=== PATIENT | female | born 1980 | race Caucasian/White ===

== ENCOUNTER 2017-07-01 05:01 | Emergency (ER) | payer BC ==
[2017-07-01] MEDS ORDERED: Sodium Chloride 0.9% 10 ML Syringe FLUSH PRN (05:14)
[2017-07-01] MEDS ORDERED: Pantoprazole 40 MG Vial IVPUSH ONE (05:14)
[2017-07-01] MEDS ORDERED: Sodium Chloride 0.9% 2.5 ML Syringe FLUSH PRN (05:14)
[2017-07-01] MEDS ORDERED: Sodium Chloride 0.9% 1,000 ML IV ONE (05:14)
[2017-07-01] MEDS ORDERED: Ondansetron 4 MG/2 ML SDV IVPUSH ONE (05:14)
[2017-07-01] MEDS ORDERED: Alum Hydrox/Mag Hydrox/Simeth 15 ML, Metoclopramide 5 MG, Lidocaine 2% 5 ML PO ONE ×3 (05:15)
[2017-07-01] MEDS ORDERED: Ketorolac 30 MG/ML SDV IVPUSH ONE (05:15)
--- NOTE | 2017-07-01 05:20 | EDM.PDOC ---
ED HPI GENERAL MEDICAL PROBLEM - General Chief Complaint: Abdominal Pain Stated Complaint: CHEST PAIN Time Seen by Provider: 07/01/17 05:04 - History of Present Illness INITIAL COMMENTS - FREE TEXT/NARRATIVE: HISTORY AND PHYSICAL: History of present illness: The patient is a 36-year-old female with a history of ankylosing spondylosis and chronic pain who does use Humira and chronic narcotic pain medication and presents with sudden onset of epigastric and lower sternal chest discomfort that started waking her from sleep about 45 minutes ago. 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 She said that all week she has been feeling "off" with some nausea on and off some fevers and not feeling quite herself. Today she had a normal day and she ate fine without nausea or vomiting no diarrhea and no urinary complaints no upper respiratory symptoms cough shortness of breath. Patient says she ate a normal dinner and did have a few sips of her husbands alcoholic beverage this evening which she doesn't normally do. The patient that she went to bed normally and suddenly woke up this morning with acute onset of epigastric discomfort which radiated up into her chest. She says that when she' s not feeling well she does eat poorly including eating junk foods and this week when she was feeling not quite herself she did do that. She has no history of food intolerance no gallbladder peptic ulcer disease or GI issue S Her only abdominal surgical history is of a She has no family history of cardiac disease and quit smoking several years ago. She denies drug use and as her has had a vasectomy. She did not take anything specifically for this new discomfort prior to coming here but did take some of her pain medication thinking that it might help. She is visibly did not take Mylanta Tums Pepto-Bismol or anything GI related. She currently feels the discomfort is deep and it is in her epigastric area and lower chest and she does have nausea. Review of systems: As per history of present illness and below otherwise all systems reviewed and negative. Past medical history: As per history of present illness and as reviewed below otherwise noncontributory. Surgical history: As per history of present illness and as reviewed below otherwise noncontributory. Social history: No reported history of drug or alcohol abuse. Family history: As per history of present illness and as reviewed below otherwise noncontributory. Physical exam: Gen.: Well-developed well-nourished female who is nontoxic and speaking clearly and easily in the ED. Vital signs of been reviewed by me. HEENT: Atraumatic, normocephalic, pupils reactive, negative for conjunctival pallor or scleral icterus, mucous membranes moist, throat clear, neck supple, nontender, trachea midline. Lungs: Clear to auscultation, breath sounds equal bilaterally, chest nontender. Heart: S1S2, regular, negative for clicks, rubs, or JVD. Abdomen: Soft, nondistended, nontender. Bowel sounds are normoactive and on palpation I cannot reproduce the pain and there is no rebound or guarding. There is some tympany in the upper abdomen without tenderness on percussion. Negative for masses or hepatosplenomegaly. Negative for costovertebral tenderness. Pelvis: Stable nontender. Genitourinary: Deferred. Rectal: Deferred. Extremities: Atraumatic, negative for cords or calf pain. Neurovascular unremarkable. No pedal edema or leg asymmetry Neuro: Awake, alert, oriented. Cranial nerves II through XII unremarkable. Cerebellum unremarkable. Motor and sensory unremarkable throughout. Exam nonfocal. Diagnostics: EKG CBC CMP amylase lipase troponin d-dimer H pylori CT scan of the abdomen and pelvis 1 view chest x-ray Therapeutics: IV O2 monitor IV fluids Zofran Toradol Protonix GI cocktail Patient states that the burning sensation in her upper abdomen is improving and she expresses to me that she is personally worried about a "intestinal blockage ". She now tells me that she has a history of constipation and takes laxatives on a weekly basis and in fact took some earlier tonight. She has no other surgical history other than the and has never had an endoscopy. I discussed with her that we would do the CT scan of the abdomen and pelvis and that we may or may not find answers from the CT scan. I did discuss with her that if the CT scan is negative then she would need to pursue further care and evaluation such as an endoscopy and the tops other testing on the gallbladder. She states understanding. She tells me now that there is no lower chest discomfort or tenderness and that is purely in the upper abdomen. SHe describes it as a burning sensation. I offered her pain medication specifically designed for pain management and she defers at this time. All testing results have been discussed wiht the pt including incidental kidney cyst and sacroilitis; she has a provider at [facility] that she can follow- up with and I will discharge her home with Carafate and Zofran. The sacroiliitis does not surprise her as she has had issues with that in the past. She has pain medication she can take and I've advised her on reasons to return to the ED. Impression: Epigastric abdominal pain, stable etiology unclear Definitive disposition and diagnosis as appropriate pending reevaluation and review of above. epigastric Pain Score (Numeric/FACES): 9 - Related Data Allergies Allergy/AdvReac Type Severity Reaction Status Date / Time No Known Allergies Allergy Verified 07/01/17 05:06 Home Meds: Home Meds oxyCODONE HCl/Acetaminophen [Percocet 5-325 mg Tablet] 1 tab PO TID 07/26/15 [ History] Adalimumab [Humira] 14 mg SQ ASDIRECTED 07/01/17 [History] Orphenadrine [Norflex] 100 mg PO BID 07/01/17 [History] Varenicline Tartrate [Chantix] 1 mg PO BID 07/01/17 [History] Social & Family History - Tobacco Use Smoking Status *Q: Former Smoker Used Tobacco, but Quit: Yes Month Tobacco Last Used: 2 - Caffeine Use Caffeine Use: Reports: Coffee Caffeine Use Comment: 2 cups daily - Recreational Drug Use Recreational Drug Use: No ED ROS GENERAL - Review of Systems Review Of Systems: ROS reveals no pertinent complaints other than HPI. ED EXAM, GENERAL - Physical Exam Exam: See Below (See dictation) Course - Vital Signs Last Recorded V/S: Last Vital Signs Temp 36.3 C 07/01/17 06:45 Pulse 88 07/01/17 06:45 Resp 18 07/01/17 06:45 BP 127/86 07/01/17 06:45 Pulse Ox 98 07/01/17 06:45 - Orders/Labs/Meds Orders: Active Orders 24 hr Category Date Time Status Cardiac Monitoring [RC] . DIRECTED Care 07/01/17 05:13 Active EKG Documentation Completion [RC] STAT Care 07/01/17 05:13 Active Oxygen Therapy, ED [RC] ASDIRECTED Care 07/01/17 05:13 Active Pulse Oximetry [RC] ASDIRECTED Care 07/01/17 05:13 Active Abdomen Pelvis w Cont [CT] Stat Exams 07/01/17 06:05 Taken Chest 1V Frontal [CR] Stat Exams 07/01/17 05:30 Taken Sodium Chloride 0.9% [Saline Flush] Med 07/01/17 05:14 Active 10 ml FLUSH ASDIRECTED PRN Sodium Chloride 0.9% [Saline Flush] Med 07/01/17 05:14 Active 2.5 ml FLUSH ASDIRECTED PRN Saline Lock Insert [OM.PC] Stat Oth 07/01/17 05:13 Ordered Medication Orders Sodium Chloride (Saline Flush) 10 ml FLUSH ASDIRECTED PRN PRN Reason: Keep Vein Open Last Admin: 07/01/17 05:31 Dose: 10 ml Sodium Chloride (Saline Flush) 2.5 ml FLUSH ASDIRECTED PRN PRN Reason: Keep Vein Open Last Admin: 07/01/17 05:31 Dose: 2.5 ml Labs: Laboratory Tests 07/01/17 07/01/17 07/01/17 Range/Units 05:10 05:10 05:10 WBC 7.51 (4.0-11.0) K/uL RBC 4.27 L (4.30-5.90) M/uL Hgb 13.7 (12.0-16.0) g/dL Hct 39.7 (36.0-46.0) % MCV 93.0 (80.0-98.0) fL MCH 32.1 H (27.0-32.0) pg MCHC 34.5 (31.0-37.0) g/dL RDW Std Deviation 42.1 (28.0-62.0) fl RDW Coeff of Rahul 13 (11.0-15.0) % Plt Count 272 (150-400) K/uL MPV 10.10 (7.40-12.00) fL Neut % (Auto) 34.6 L (48.0-80.0) % Lymph % (Auto) 49.5 H (16.0-40.0) % Andrew % (Auto) 13.3 (0.0-15.0) % Eos % (Auto) 1.9 (0.0-7.0) % Baso % (Auto) 0.7 (0.0-1.5) % Neut # (Auto) 2.6 (1.4-5.7) K/uL Lymph # (Auto) 3.7 H (0.6-2.4) K/uL Andrew # (Auto) 1.0 H (0.0-0.8) K/uL Eos # (Auto) 0.1 (0.0-0.7) K/uL Baso # (Auto) 0.1 (0.0-0.1) K/uL Nucleated RBC % 0.0 /100WBC Nucleated RBCs # 0 K/uL D-Dimer, Quantitative 0.34 (0.0-0.52) mg/LFEU Sodium 139 (136-146) mmol/L Potassium 3.5 (3.5-5.1) mmol/L Chloride 108 (98-110) mmol/L Carbon Dioxide 20 L (21-31) mmol/L BUN 10 (6.0-23.0) mg/dL Creatinine 0.8 (0.6-1.5) mg/dL Est Cr Clr Drug Dosing 107.15 mL/min Estimated GFR (MDRD) > 60.0 ml/min Glucose 95 (60-110) mg/dL Calcium 9.3 (8.8-10.8) mg/dL Total Bilirubin 0.4 (0.1-1.5) mg/dL AST 12 (5-40) IU/L ALT 10 (8-54) IU/L Alkaline Phosphatase 54 (40-150) Troponin I < 0.10 (0.0-0.29) NG/ML Total Protein 6.7 (6.0-8.0) g/dL Albumin 4.1 (3.5-5.0) g/dL Globulin 2.6 (2.0-3.5) g/dL Albumin/Globulin Ratio 1.6 (1.3-2.8) Amylase 45 (10-90) U/L Lipase 21 (7-80) U/L H. pylori IgG Antibody (NEG) 07/01/17 Range/Units 05:10 WBC (4.0-11.0) K/uL RBC (4.30-5.90) M/uL Hgb (12.0-16.0) g/dL Hct (36.0-46.0) % MCV (80.0-98.0) fL MCH (27.0-32.0) pg MCHC (31.0-37.0) g/dL RDW Std Deviation (28.0-62.0) fl RDW Coeff of Rahul (11.0-15.0) % Plt Count (150-400) K/uL MPV (7.40-12.00) fL Neut % (Auto) (48.0-80.0) % Lymph % (Auto) (16.0-40.0) % Andrew % (Auto) (0.0-15.0) % Eos % (Auto) (0.0-7.0) % Baso % (Auto) (0.0-1.5) % Neut # (Auto) (1.4-5.7) K/uL Lymph # (Auto) (0.6-2.4) K/uL Andrew # (Auto) (0.0-0.8) K/uL Eos # (Auto) (0.0-0.7) K/uL Baso # (Auto) (0.0-0.1) K/uL Nucleated RBC % /100WBC Nucleated RBCs # K/uL D-Dimer, Quantitative (0.0-0.52) mg/LFEU Sodium (136-146) mmol/L Potassium (3.5-5.1) mmol/L Chloride (98-110) mmol/L Carbon Dioxide (21-31) mmol/L BUN (6.0-23.0) mg/dL Creatinine (0.6-1.5) mg/dL Est Cr Clr Drug Dosing mL/min Estimated GFR (MDRD) ml/min Glucose (60-110) mg/dL Calcium (8.8-10.8) mg/dL Total Bilirubin (0.1-1.5) mg/dL AST (5-40) IU/L ALT (8-54) IU/L Alkaline Phosphatase (40-150) Troponin I (0.0-0.29) NG/ML Total Protein (6.0-8.0) g/dL Albumin (3.5-5.0) g/dL Globulin (2.0-3.5) g/dL Albumin/Globulin Ratio (1.3-2.8) Amylase (10-90) U/L Lipase (7-80) U/L H. pylori IgG Antibody NEGATIVE (NEG) Meds: Medications Generic Name Dose Route Start Last Admin Trade Name Freq PRN Reason Stop Dose Admin Sodium Chloride 10 ml 07/01/17 05:14 07/01/17 05:31 Saline Flush FLUSH 10 ml ASDIRECTED PRN Administration Keep Vein Open Sodium Chloride 2.5 ml 07/01/17 05:14 07/01/17 05:31 Saline Flush FLUSH 2.5 ml ASDIRECTED PRN Administration Keep Vein Open Discontinued Medications Generic Name Dose Route Start Last Admin Trade Name Freq PRN Reason Stop Dose Admin Al Hydroxide/Mg Hydroxide 15 0 ml 07/01/17 05:15 07/01/17 05:30 ml/ Metoclopramide HCl 5 mg/ PO 07/01/17 05:16 25 each Lidocaine HCl 5 ml ONETIME ONE Administration Sodium Chloride 1,000 mls @ 999 mls/hr 07/01/17 05:14 07/01/17 05:20 Normal Saline IV 07/01/17 06:14 999 mls/hr STAT ONE Administration Ketorolac Tromethamine 30 mg 07/01/17 05:15 07/01/17 05:26 Toradol IVPUSH 07/01/17 05:16 30 mg ONETIME ONE Administration Ondansetron HCl 4 mg 07/01/17 05:14 07/01/17 05:23 Zofran IVPUSH 07/01/17 05:15 4 mg ONETIME ONE Administration Pantoprazole Sodium 40 mg 07/01/17 05:14 07/01/17 05:27 Protonix Iv IVPUSH 07/01/17 05:15 40 mg NOW ONE Administration Departure - Departure Time of Disposition: 07:15 Disposition: Home, Self-Care 01 Condition: Good Clinical Impression: Epigastric abdominal pain, Dyspepsia - Discharge Information Referrals: PCP,None [Primary Care Provider] - Forms: ED Department Discharge Additional Instructions: The following information is given to patients seen in the emergency department who are being discharged to home. This information is to outline your options for follow-up care. We provide all patients seen in our emergency department with a follow-up referral. The need for follow-up, as well as the timing and circumstances, are variable depending upon the specifics of your emergency department visit. If you don't have a primary care physician on staff, we will provide you with a referral. We always advise you to contact your personal physician following an emergency department visit to inform them of the circumstance of the visit and for follow-up with them and/or the need for any referrals to a consulting specialist. The emergency department will also refer you to a specialist when appropriate. This referral assures that you have the opportunity for followup care with a specialist. All of these measure are taken in an effort to provide you with optimal care, which includes your followup. Under all circumstances we always encourage you to contact your private physician who remains a resource for coordinating your care. When calling for followup care, please make the office aware that this follow-up is from your recent emergency room visit. If for any reason you are refused follow-up, please contact the [facility] emergency department at and ask to speak to the emergency department charge nurse. [facility] Primary care- [place] [address] [place] [address] Please call and follow-up with your provider or one of our clinic physicians for further care and evaluation of the symptoms. Please eat a low-fat diet and avoid spicy foods caffeinated products fast foods and junk foods. Return to ER as needed and as discussed. Use the pain medications you have his home as needed and directed. Use Zofran and Carafate as directed. - My Orders Last 24 Hours: My Active Orders 07/01/17 05:13 Cardiac Monitoring [RC] . DIRECTED EKG Documentation Completion [RC] STAT Oxygen Therapy, ED [RC] ASDIRECTED Pulse Oximetry [RC] ASDIRECTED Saline Lock Insert [OM.PC] Stat 07/01/17 05:14 Sodium Chloride 0.9% [Saline Flush] 10 ml FLUSH ASDIRECTED PRN Sodium Chloride 0.9% [Saline Flush] 2.5 ml FLUSH ASDIRECTED PRN 07/01/17 05:30 Chest 1V Frontal [CR] Stat 07/01/17 06:05 Abdomen Pelvis w Cont [CT] Stat - Assessment/Plan Last 24 Hours: My Active Orders 07/01/17 05:13 Cardiac Monitoring [RC] . DIRECTED EKG Documentation Completion [RC] STAT Oxygen Therapy, ED [RC] ASDIRECTED Pulse Oximetry [RC] ASDIRECTED Saline Lock Insert [OM.PC] Stat 07/01/17 05:14 Sodium Chloride 0.9% [Saline Flush] 10 ml FLUSH ASDIRECTED PRN Sodium Chloride 0.9% [Saline Flush] 2.5 ml FLUSH ASDIRECTED PRN 07/01/17 05:30 Chest 1V Frontal [CR] Stat 07/01/17 06:05 Abdomen Pelvis w Cont [CT] Stat
[2017-07-01 05:51] LABS: CHLORIDE,CL 108 mmol/L (98-110); SODIUM,NA 139 mmol/L (136-146)
[2017-07-01 06:46] VITALS: BP 127/86
--- NOTE | 2017-07-01 12:23 | CR ---
EXAM DATE: 07/01/17 PATIENT'S AGE: 36 Patient: ENIO HILL Facility: [place], [place] Site . Site : 1980 Study: XRay Chest [id number] 5:55:21 AM Ordering Physician: Gretchen Pulido Final Report: INDICATION: Chest pain. TECHNIQUE: Chest radiograph 1 view COMPARISON: None FINDINGS: Cardiovascular and mediastinum: The heart silhouette is normal in size and morphology. The mediastinum is normal in appearance. Lungs and pleural spaces: Both lungs are unremarkable in appearance. No sign of pleural effusion seen. No pneumothorax is identified. Bones and soft tissues: No significant findings. IMPRESSION: 1. Negative chest. Dictated by Carlo Reyes MD @ 07/01/2017 5:57:18 AM Dictated by: Carlo Reyes MD @ 07/01/2017 05:57:24 (Electronic Signature) Report Signed by Proxy. [facility]
--- NOTE | 2017-07-01 12:24 | CT ---
EXAM DATE: 07/01/17 PATIENT'S AGE: 36 Patient: ENIO HILL Facility: [place], [place] Site . Site : 1980 Study: CT Abdomen/Pelvis [id number] 6:49:47 AM Ordering Physician: Gretchen Pulido Final Report: HISTORY: Abdominal pain for 1 day. Technique: CT abdomen and pelvis with IV contrast. Comparison: None. Findings: Abdomen: No liver lesions. Gallbladder is unremarkable. No bile duct dilation. No pancreatic mass or duct dilation. No peripancreatic inflammatory change. No spleen lesions. Spleen is normal size. No adrenal nodules. Kidneys enhance symmetrically. 1 cm cyst in the mid left kidney. No hydronephrosis. Small hiatal hernia. No dilated bowel. Appendix is normal. No free intraperitoneal gas. No lymphadenopathy. Abdominal aorta is normal caliber. Pelvis: Trace free fluid. No lymphadenopathy. Musculoskeletal: Periarticular sclerosis at both sacroiliac joints, right greater than left, with areas of articular cortex irregularity and small subcortical lucencies which may be erosions. No ankylosis. Lower chest: Trace right pleural fluid with minimal right basilar atelectasis. Impression: 1. No acute findings in the abdomen pelvis. 2. Trace free fluid in the pelvis, likely physiologic. 3. Small hiatal hernia. 4. Bilateral sacroiliitis which may be inflammatory. Correlate with history of inflammatory spondyloarthropathy or inflammatory back pain. Please note that all CT scans at this facility use dose modulation, iterative reconstruction, and/or weight-based dosing when appropriate to reduce radiation dose to as low as reasonably achievable. Dictated by Ankit Middleton MD @ Jul 01 2017 7:09AM (Electronic Signature) Report Signed by Proxy. [facility]esar
== END 2017-07-01 07:30 | disposition home or self-care (01) ==
LOC: MW.ED 05:01
DX: R10.13 Epigastric pain (principal); Z87.891 Personal history of nicotine dependence
CPT/HCPCS: 71010; 74177; 80053; 82150; 83690; 84484; 85025; 85379; 86677; 93005; 96361; 96374; 96375; 99285; A9270; C9113; J1885; J2405; J7040; 99283